=== PATIENT | male | born 1975 | race Native Hawaiian/Other Pacific Islander ===

== ENCOUNTER → 2019-06-19 | Outpatient (CLI) | payer OTHER ==
--- NOTE | 2019-06-19 17:31 | Diagnostic Imaging Report ---
PROCEDURE: MR imaging cervical spine without contrast. TECHNIQUE: Multiplanar, multisequence MR imaging of the cervical spine was performed without contrast. INDICATION: Patient reports he popped his neck 29 years ago and has had pain ever since. FINDINGS: Sagittal view shows good alignment of the vertebral bodies. Body heights and disc spaces are well-maintained. Marrow signal is normal throughout. The atlantoaxial joint appears normal. The odontoid is intact. No evidence of disc herniation. No desiccation of the discs demonstrated. No evidence of spinal stenosis. The cervical cord appears normal and uniform in shape with no abnormal T2 signal. Central canal is not dilated. The paraspinal soft tissues appear normal. IMPRESSION: Normal MRI of the cervical spine. Dictated by: Dictated on workstation # [id number]
== END ==
LOC: RAD 16:34
PROVIDERS: ATTEND Nurse Practitioner Community Health
DX: M54.12 Radiculopathy, cervical region (principal)
CPT/HCPCS: 72141